=== PATIENT | male | born 1965 | race African-American/Black ===

== ENCOUNTER 2018-03-28 20:32 | Emergency (ER) | payer MEDICAID ==
[~2018-03-28] VITALS: Ht 177.8 cm; Wt 51.0 kg
--- NOTE | 2018-03-28 21:32 | NUR ---
TO ROOM FROM LOBBY. NAD.
[2018-03-29 00:18] VITALS: BP 116/83
== END 2018-03-29 00:20 | disposition home or self-care (01) ==
LOC: ED 03-29 00:14
DX: R00.2 Palpitations (principal)
CPT/HCPCS: 71045; 93005; 99283

== ENCOUNTER 2018-04-15 22:19 | Emergency (ER) | payer MEDICAID ==
[~2018-04-15] VITALS: Ht 177.8 cm; Wt 80.9 kg
[2018-04-15 22:24] VITALS: BP 136/83
--- NOTE | 2018-04-15 22:38 | NUR ---
PT HERE FOR SPLINTER TO RIGHT HAND FINGER. PT REPORTS BEEN IN THERE FOR 5 DAYS.
--- NOTE | 2018-04-15 23:27 | NUR ---
I/D COMPLETED AT THIS TIME. PT HAD A BAND AID PLACED ON FINGER FOR WOUND DRESSING.
--- NOTE | 2018-04-15 23:36 | NUR ---
Patient/Caregiver given discharge instructions and they have confirmed that they understand the instructions. Patient ambulatory with steady gait.
== END 2018-04-15 23:45 | disposition home or self-care (01) ==
LOC: ED 22:44
DX: S90.454A Superficial foreign body, right lesser toe(s), initial encounter (principal); W45.8XXA Other foreign body or object entering through skin, initial encounter; Y93.89 Activity, other specified; Y92.009 Unspecified place in unspecified non-institutional (private) residence as the place of occurrence of the external cause; Y99.8 Other external cause status
CPT/HCPCS: 10120; 20520; 99284

== ENCOUNTER 2018-09-05 19:33 | Emergency (ER) | payer MEDICAID ==
[~2018-09-05] VITALS: Ht 177.8 cm; Wt 81.3 kg
[2018-09-05] MEDS ORDERED: ONDANSETRON ODT 4 MG PO ONE (21:00)
[2018-09-05] MEDS ORDERED: MECLIZINE CHEWABLE 25 MG TAB PO ONE (21:00)
[2018-09-05] MEDS ORDERED: ONDANSETRON ODT 4 MG ONE (21:02)
[2018-09-05] MEDS ORDERED: MECLIZINE CHEWABLE 25 MG TAB ONE (21:02)
--- NOTE | 2018-09-05 21:03 | NUR ---
PT MEDICATED BY ROMERO. PT ATTACHED TO VS MACHINES. VSS. LAB AT . PT HAS CALL LIGHT WITHIN REACH AND DENIES ANY OTHER NEEDS AT THIS TIME.
[2018-09-05 21:26] LABS: ALANINE AMINOTRANSFERASE 22 U/L (12-78); ALBUMIN 3.9 g/dL (3.4-5.0); ANION GAP 3 mmol/L (5-15); CALCIUM 8.9 mg/dL (8.5-10.1); CHLORIDE 106 mmol/L (98-107); CREATININE 1.12 mg/dL (0.7-1.3)
[2018-09-05 21:29] LABS: ALKALINE PHOSPHATASE 64 U/L (45-117); BILIRUBIN,TOTAL 0.5 mg/dL (0.2-1.0)
--- NOTE | 2018-09-05 21:37 | NUR ---
PT RESTING IN [facility] AT THIS TIME; KATYN. CALL LIGHT IS WITHIN REACH.
[2018-09-05 21:44] LABS: MEAN CORPUSCULAR HEMOGLOBIN 31.6 pg (27.5-34.5); MEAN CORPUSCULAR HGB CONC 33.5 g/dL (33.2-36.2); MEAN CORPUSCULAR VOLUME 94.4 fL (81-97); MEAN PLATELET VOLUME 7.6 fL (7.4-10.4); PLATELET COUNT 334 x10^3/uL (130-400); RED BLOOD COUNT 4.98 x10^6/uL (4.38-5.82); RED CELL DISTRIBUTION WIDTH 14.7 % (9.4-14.8)
[2018-09-05 21:50] LABS: BASOS#(MANUAL) 0.04 x10^3/uL (0-0.1); BASOS% (MANUAL) 1 % (0-1); LYMPH#(MANUAL) 1.25 x10^3/uL (1-3.4); LYMPHS% (MANUAL) 32 % (22-44); MD YES; MONOS#(MANUAL) 0.27 x10^3/uL (0.3-2.7); MONOS% (MANUAL) 7 % (2-9); REACTIVE LYMPHS % (MANUAL) 5 % (0-0); SEG#(MANUAL) 2.15 x10^3/uL (1.8-6.8); SEGS% (MANUAL) 55 % (42-75)
[2018-09-05 21:52] LABS: ANISOCYTOSIS 1+
[2018-09-05 21:53] VITALS: BP 140/77
[2018-09-05 21:53] LABS: POLYCHROMASIA 1+; TARGET CELLS 1+; TEAR DROPS 1+
[2018-09-05 21:54] LABS: <PLATELET ESTIMATE> ADEQUATE; LARGE PLATELETS 1+
[2018-09-05 22:42] LABS: MICROSCOPIC NOT IND
[2018-09-05 22:44] LABS: CULTURE INDICATED? NO
--- NOTE | 2018-09-05 23:09 | NUR ---
PT D/C WITH D/C SUMMARY AND SCRIPTS. ALL QUESTIONS ANSWERED. PT AMBULATES TO REGISTRATION DESK WITH STEADY GAIT FOR D/C HOME. PT DENIES ANY OTHER NEEDS PERTAINING TO THIS VISIT. VSS UPON D/C.
== END 2018-09-05 23:20 | disposition home or self-care (01) ==
LOC: ED 22:06
DX: R42 Dizziness and giddiness (principal); R11.0 Nausea
CPT/HCPCS: 36415; 71045; 80053; 81003; 85025; 87491; 87591; 93005; 99284; Q0162

== ENCOUNTER 2018-11-15 16:00 | Emergency (ER) | payer MEDICAID ==
[~2018-11-15] VITALS: Ht 180.3 cm; Wt 81.3 kg
--- NOTE | 2018-11-15 16:04 | NUR ---
NIL X 1
--- NOTE | 2018-11-15 16:15 | NUR ---
PT AMBULATORY TO RME FROM TRIAGE WITH STEADY GAIT. NAD NOTED. RESP REGULAR AND UNLABORED. PA AT BEDSIDE FOR EVALUATION. AWAITING ORDERS. CALL LIGHT IN REACH. FALL PRECAUTIONS IN PLACE.
[2018-11-15] MEDS ORDERED: KETOROLAC 30 MG/1 ML IM ONE (16:30)
[2018-11-15] MEDS ORDERED: KETOROLAC 30 MG/1 ML ONE (16:49)
--- NOTE | 2018-11-15 16:53 | NUR ---
PT MEDICATED NOTED PER ORDER FOR 8/10 PAIN IN LEFT SHOULDER. CMS INTACT. PULSE NORMAL AND STRONG. ICE PACK IN PLACE. CALL LIGHT IN REACH
--- NOTE | 2018-11-15 17:09 | NUR ---
ROLAND CORTES AT BEDSIDE DISCUSSING DISCHARGE POC WITH PT
[2018-11-15 17:10] VITALS: BP 124/88
== END 2018-11-15 17:33 | disposition home or self-care (01) ==
LOC: ED 17:16
DX: G89.11 Acute pain due to trauma (principal); M25.512 Pain in left shoulder; X58.XXXA Exposure to other specified factors, initial encounter; Y93.89 Activity, other specified; Y92.89 Other specified places as the place of occurrence of the external cause; Y99.8 Other external cause status
CPT/HCPCS: 73030; 96372; 99283; J1885

== ENCOUNTER 2019-02-04 19:00 | Emergency (ER) | payer SELFPAY ==
[~2019-02-04] VITALS: Ht 177.8 cm; Wt 82.1 kg
[2019-02-04 19:03] VITALS: BP 145/91
== END 2019-02-04 20:46 | disposition home or self-care (01) ==
LOC: ED 20:12
DX: M25.512 Pain in left shoulder (principal); F17.200 Nicotine dependence, unspecified, uncomplicated; Z91.011 Allergy to milk products; W06.XXXA Fall from bed, initial encounter; Y93.89 Activity, other specified; Y92.098 Other place in other non-institutional residence as the place of occurrence of the external cause; Y99.8 Other external cause status
CPT/HCPCS: 29105; 99283

== ENCOUNTER 2019-05-17 18:17 | Emergency (ER) | payer MEDICAID ==
[~2019-05-17] VITALS: Ht 177.8 cm; Wt 82.2 kg
--- NOTE | 2019-05-17 18:30 | NUR ---
EKG done in triage
[2019-05-17 19:01] LABS: BASOPHILS # (AUTO) 0.21 x10^3/uL (0-0.1); BASOPHILS % (AUTO) 4 % (0-1); EOSINOPHILS # (AUTO) 0.05 x10^3/uL (0-0.4); EOSINOPHILS % (AUTO) 1 % (1-7); LYMPHOCYTES # (AUTO) 2.57 x10^3/uL (1-3.4); LYMPHOCYTES % (AUTO) 48 % (22-44); MD NO; MEAN CORPUSCULAR HEMOGLOBIN 31.3 pg (27.5-34.5); MEAN CORPUSCULAR HGB CONC 33.9 g/dL (33.2-36.2); MEAN CORPUSCULAR VOLUME 92.3 fL (81-97); MEAN PLATELET VOLUME 7.6 fL (7.4-10.4); MONOCYTES # (AUTO) 0.57 x10^3/uL (0.2-0.8); MONOCYTES % (AUTO) 11 % (2-9); NEUTROPHILS # (AUTO) 1.96 x10^3/uL (1.8-6.8); NEUTROPHILS % (AUTO) 37 % (42-75); PLATELET COUNT 310 x10^3/uL (130-400); RED BLOOD COUNT 5.31 x10^6/uL (4.38-5.82); RED CELL DISTRIBUTION WIDTH 14.6 % (9.4-14.8)
[2019-05-17 19:10] LABS: ALANINE AMINOTRANSFERASE 20 U/L (12-78); ALBUMIN 4.3 g/dL (3.4-5.0); ANION GAP 3 mmol/L (5-15); CALCIUM 9.6 mg/dL (8.5-10.1); CHLORIDE 104 mmol/L (98-107); CREATININE 1.17 mg/dL (0.7-1.3)
--- NOTE | 2019-05-17 19:10 | NUR ---
PT TO ED WITH C/O CP OFF AND ON FOR YEARS. STATES "I GET CP WHEN IM ANXIOUS". REPORTS HX OF SAME STATES "MY HEART IS ALWAYS OKAY, I JUST WANT TO CHECK JUST IN CASE". PT REPORTS CHEST TIGHTNESS, DENIES RADIATION OR ANY OTHER C/O AT THIS TIME. PT CONNECTED TO ALL MONITORING, CALL LIGHT WITHIN REACH. EKG DONE IN TRIAGE, LABS DRAWN, UA SENT.
[2019-05-17 19:14] LABS: MICROSCOPIC NOT IND
[2019-05-17 19:14] LABS: ALKALINE PHOSPHATASE 67 U/L (45-117); BILIRUBIN,TOTAL 1.2 mg/dL (0.2-1.0); TOTAL PROTEIN 8.5 g/dL (6.4-8.2); TROPONIN I < 0.015 ng/mL (0.000-0.045)
[2019-05-17 19:15] LABS: CULTURE INDICATED? NO
[2019-05-17 20:40] VITALS: BP 134/93
== END 2019-05-17 20:43 | disposition home or self-care (01) ==
LOC: ED 20:37
DX: R07.89 Other chest pain (principal); F41.1 Generalized anxiety disorder
CPT/HCPCS: 36415; 71045; 80053; 81003; 84484; 85025; 93005; 99285

== ENCOUNTER 2019-06-29 20:52 | Emergency (ER) | payer MEDICAID ==
[~2019-06-29] VITALS: Ht 177.8 cm; Wt 80.9 kg
--- NOTE | 2019-06-29 21:16 | NUR ---
THIS IS A 54 YO MALE COMING IN FOR SORE THROAT/ "FEELING FEVERISH AT HOME" FOR THE PAST WEEK. DENIES SOB, DENIES COUGH OR CONGESTION, DENIES N/V/D. PATIENT SPEAKING IN FULL SENTENCES, APPEARS AND STATES "I FEEL ANXIOUS, WHAT IF I HAVE THAT VIRUS". RESPIRATIONS EVEN AND UNLABORED, LUNG SOUNDS CLEAR THROUGHOUT.ALL MONITORING IN PLACE, SINUS TACHYCARDIC ON MONITOR AT 111.98% ON RA. CALL LIGHT IN REACH. SOPHIA SMITH TO ROOM.
[2019-06-29 22:02] LABS: RAPID INFLUENZA A Negative (Negative); RAPID INFLUENZA B Negative (Negative)
[2019-06-29 22:12] VITALS: BP 131/72
--- NOTE | 2019-06-29 22:12 | NUR ---
Patient given discharge instructions and they have confirmed that they understand the instructions. Patient ambulatory with steady gait.
== END 2019-06-29 22:22 | disposition home or self-care (01) ==
LOC: ED 21:18
DX: J02.8 Acute pharyngitis due to other specified organisms (principal); B34.9 Viral infection, unspecified; R00.0 Tachycardia, unspecified; R94.31 Abnormal electrocardiogram [ECG] [EKG]
CPT/HCPCS: 71045; 87081; 87400; 87880; 93005

== ENCOUNTER 2019-08-19 21:35 | Emergency (ER) | payer MEDICAID ==
[~2019-08-19] VITALS: Ht 177.8 cm; Wt 80.0 kg
--- NOTE | 2019-08-19 21:55 | NUR ---
YARDER ENGINEER: PT TO ROOM FROM LOBBY
[2019-08-19 23:05] VITALS: BP 122/84
== END 2019-08-19 23:07 | disposition home or self-care (01) ==
LOC: ED 23:00
DX: K64.4 Residual hemorrhoidal skin tags (principal); R00.0 Tachycardia, unspecified
CPT/HCPCS: 99283

== ENCOUNTER 2019-09-03 22:10 | Emergency (ER) | payer MEDICAID ==
[~2019-09-03] VITALS: Ht 177.8 cm; Wt 79.7 kg
[2019-09-03 22:23] VITALS: BP 131/87
--- NOTE | 2019-09-03 22:48 | NUR ---
Per md pt to dc and follow up with PCP. Pt has hemarrhoids non emergent case.
--- NOTE | 2019-09-03 22:49 | NUR ---
Patient/Caregiver given discharge instructions and they have confirmed that they understand the instructions. Patient ambulatory with steady gait.
== END 2019-09-03 22:56 | disposition home or self-care (01) ==
LOC: ED 22:30
DX: K64.4 Residual hemorrhoidal skin tags (principal)
CPT/HCPCS: 99281

== ENCOUNTER 2019-10-30 14:27 | Emergency (ER) | payer MEDICAID ==
[~2019-10-30] VITALS: Ht 177.8 cm; Wt 80.4 kg
--- NOTE | 2019-10-30 15:29 | NUR ---
PT TO ROOM FROM LOBBY AT THIS TIME.
[2019-10-30] MEDS ORDERED: CARBAMIDE PEROXIDE EAR DROPS 6.5%, 15ML RIGHT EAR ONE (16:00)
[2019-10-30] MEDS ORDERED: HYDR-2995 PO (16:13)
[2019-10-30] MEDS ORDERED: SUMA25TA4 PO (16:13)
[2019-10-30] MEDS ORDERED: CARBAMIDE PEROXIDE EAR DROPS 6.5%, 15ML ONE (16:27)
[2019-10-30 16:29] VITALS: BP 123/85
== END 2019-10-30 16:40 | disposition home or self-care (01) ==
LOC: ED 16:33
DX: H10.022 Other mucopurulent conjunctivitis, left eye (principal); H61.21 Impacted cerumen, right ear
CPT/HCPCS: 99283

== ENCOUNTER 2019-12-13 18:08 | Emergency (ER) | payer MEDICAID ==
[~2019-12-13] VITALS: Ht 180.3 cm; Wt 81.1 kg
[~2019-12-13 18:08] MED LIST: HYDR-2995 PO; SUMA25TA4 PO
[2019-12-13 18:12] VITALS: BP 151/94
== END 2019-12-13 21:13 | disposition home or self-care (01) ==
LOC: ED 21:00
DX: B34.9 Viral infection, unspecified (principal); Z20.828 Contact with and (suspected) exposure to other viral communicable diseases
CPT/HCPCS: 36415; 87635; 99283

== ENCOUNTER 2019-12-17 02:59 | Emergency (ER) | payer MEDICAID ==
[~2019-12-17] VITALS: Ht 180.3 cm; Wt 83.1 kg
--- NOTE | 2019-12-17 03:03 | NUR ---
SUPERVISOR CELLARS: PT IN RESTROOM WHEN CALLED FOR TRIAGE
[2019-12-17 03:14] VITALS: BP 127/87
[2019-12-17 04:10] LABS: MEAN CORPUSCULAR HEMOGLOBIN 30.6 pg (27.5-34.5); MEAN CORPUSCULAR HGB CONC 33.7 g/dL (33.2-36.2); MEAN PLATELET VOLUME 7.4 fL (7.4-10.4); PLATELET COUNT 309 x10^3/uL (130-400); RED BLOOD COUNT 4.86 x10^6/uL (4.38-5.82); RED CELL DISTRIBUTION WIDTH 14.2 % (9.4-14.8)
[2019-12-17 04:12] LABS: ALANINE AMINOTRANSFERASE 31 U/L (12-78); ALBUMIN 3.8 g/dL (3.4-5.0); ANION GAP 3 mmol/L (5-15); CALCIUM 9.5 mg/dL (8.5-10.1); CHLORIDE 104 mmol/L (98-107); CREATININE 0.99 mg/dL (0.7-1.3)
[2019-12-17 04:15] LABS: ALKALINE PHOSPHATASE 72 U/L (45-117); BILIRUBIN,TOTAL 0.7 mg/dL (0.2-1.0)
[2019-12-17 04:25] LABS: BASOPHILS # (AUTO) 0.09 x10^3/uL (0-0.1); BASOPHILS % (AUTO) 2 % (0-1); EOSINOPHILS # (AUTO) 0.12 x10^3/uL (0-0.4); EOSINOPHILS % (AUTO) 2 % (1-7); LYMPHOCYTES # (AUTO) 2.02 x10^3/uL (1-3.4); LYMPHOCYTES % (AUTO) 39 % (22-44); MD SCAN; MONOCYTES # (AUTO) 0.53 x10^3/uL (0.2-0.8); MONOCYTES % (AUTO) 10 % (2-9); NEUTROPHILS # (AUTO) 2.45 x10^3/uL (1.8-6.8); NEUTROPHILS % (AUTO) 47 % (42-75)
== END 2019-12-17 04:52 | disposition home or self-care (01) ==
LOC: ED 03:39
DX: K62.5 Hemorrhage of anus and rectum (principal); R10.84 Generalized abdominal pain
CPT/HCPCS: 36415; 80053; 85025; 99283

== ENCOUNTER 2020-03-15 23:44 | Emergency (ER) | payer MEDICAID ==
[~2020-03-15] VITALS: Ht 177.8 cm; Wt 82.5 kg
[2020-03-16 00:29] VITALS: BP 147/88
--- NOTE | 2020-03-16 00:31 | NUR ---
PT STATED HE WAS LEAVING AND DID NOT WANT TO BE SEEN AND JUST WANTED B/P CHECKED
== END 2020-03-16 00:34 | disposition left against medical advice (07) ==
LOC: ED 03-16
DX: I10 Essential (primary) hypertension (principal); Z53.21 Procedure and treatment not carried out due to patient leaving prior to being seen by health care provider

== ENCOUNTER 2020-06-23 13:56 | Emergency (ER) | payer MEDICAID ==
[~2020-06-23] VITALS: Ht 177.8 cm; Wt 83.7 kg
[2020-06-23 14:01] VITALS: BP 152/99
[2020-06-23] MEDS ORDERED: ACETAMINOPHEN 500 MG TABLET ONE (15:13)
[2020-06-23] MEDS ORDERED: ACETAMINOPHEN 500 MG TABLET PO ONE (15:30)
== END 2020-06-23 15:23 | disposition home or self-care (01) ==
LOC: ED 14:47
DX: B34.9 Viral infection, unspecified (principal); Z20.822 Contact with and (suspected) exposure to COVID-19
CPT/HCPCS: 71045; 99284; U0003

== ENCOUNTER 2020-08-19 19:11 | Emergency (ER) | payer MEDICAID ==
[~2020-08-19] VITALS: Ht 177.8 cm; Wt 81.2 kg
[2020-08-19 19:15] VITALS: BP 144/110
== END 2020-08-19 20:24 | disposition home or self-care (01) ==
LOC: ED 19:20
DX: B49 Unspecified mycosis (principal)
CPT/HCPCS: 99281

== ENCOUNTER 2020-09-02 22:46 | Emergency (ER) | payer MEDICAID ==
[~2020-09-02] VITALS: Ht 177.8 cm; Wt 83.1 kg
[2020-09-02 23:13] VITALS: BP 123/79
--- NOTE | 2020-09-03 02:18 | NUR ---
EARRING MAKER: NIL X 1 WHEN CALLED FOR ROOM.
--- NOTE | 2020-09-03 02:25 | NUR ---
SPONGE MAKER: NIL X 2 WHEN CALLED FOR ROOM.
--- NOTE | 2020-09-03 02:43 | NUR ---
AUTISM SPECIALIST: NIL X 3 WHEN CALLED FOR ROOM.
== END 2020-09-03 02:44 | disposition left against medical advice (07) ==
LOC: ED 23:48
DX: B35.3 Tinea pedis (principal); Z53.21 Procedure and treatment not carried out due to patient leaving prior to being seen by health care provider

== ENCOUNTER 2020-09-04 00:47 | Emergency (ER) | payer MEDICAID ==
[~2020-09-04] VITALS: Ht 177.8 cm; Wt 81.6 kg
[2020-09-04 00:50] VITALS: BP 117/84
--- NOTE | 2020-09-04 02:00 | NUR ---
pt presented to ed with blacked toenail. pt states it started as a black strip and it is now all black. pt resting on [facility].
--- NOTE | 2020-09-04 02:31 | NUR ---
Patient/Caregiver given discharge instructions and they have confirmed that they understand the instructions. Patient ambulatory with steady gait.
== END 2020-09-04 02:32 | disposition home or self-care (01) ==
LOC: ED 02:27
DX: B35.1 Tinea unguium (principal); E78.00 Pure hypercholesterolemia, unspecified
CPT/HCPCS: 99282

== ENCOUNTER 2020-10-27 13:57 | Emergency (ER) | payer MEDICAID ==
[~2020-10-27] VITALS: Ht 177.8 cm; Wt 79.9 kg
[2020-10-27 14:04] VITALS: BP 118/88
--- NOTE | 2020-10-27 14:28 | NUR ---
DR. MARLEY TO BEDSIDE
--- NOTE | 2020-10-27 14:36 | NUR ---
FIRST CONTACT: CORREA, LOW ABD PAIN, BLOODY STOOL WHEN WIPING X1, S/S SINCE RETURNED FROM [place] 2 WKS AGO, HX HEMORRHOIDS W BANDING, DENIES NV. PT ATTACHED TO MONITORS. MICHAEL.
[2020-10-27 14:54] LABS: BASOPHILS % (AUTO) 1 % (0-1); EOSINOPHILS % (AUTO) 1 % (1-7); LYMPHOCYTES % (AUTO) 38 % (22-44); MEAN CORPUSCULAR HEMOGLOBIN 30.8 pg (27.5-34.5); MEAN CORPUSCULAR HGB CONC 34.9 g/dL (33.2-36.2); MEAN PLATELET VOLUME 6.9 fL (7.4-10.4); MONOCYTES % (AUTO) 15 % (2-9); NEUTROPHILS % (AUTO) 44 % (42-75); PLATELET COUNT 340 x10^3/uL (130-400); RED BLOOD COUNT 4.86 x10^6/uL (4.38-5.82); RED CELL DISTRIBUTION WIDTH 14.6 % (9.4-14.8)
--- NOTE | 2020-10-27 15:43 | NUR ---
Patient given discharge instructions and they have confirmed that they understand the instructions. Patient ambulatory with steady gait. NAD, all questions answered appropriately, denies additional needs at this time. No personal belongings left in room after discharge.
== END 2020-10-27 15:44 | disposition home or self-care (01) ==
LOC: ED 14:29
DX: K62.5 Hemorrhage of anus and rectum (principal)
CPT/HCPCS: 36415; 85025; 99283

== ENCOUNTER 2020-11-12 01:52 | Emergency (ER) | payer MEDICAID ==
[~2020-11-12] VITALS: Ht 177.8 cm; Wt 81.0 kg
[2020-11-12 01:58] VITALS: BP 147/87
== END 2020-11-12 02:36 | disposition home or self-care (01) ==
LOC: ED 02:22
DX: L73.1 Pseudofolliculitis barbae (principal)
CPT/HCPCS: 99281